=== PATIENT | female | born 1985 ===

== ENCOUNTER 2021-02-10 12:26 | Emergency (ER) | payer OTHER, MEDICAID, SELFPAY ==
[2021-02-10 12:26] VITALS: BP 137/85; PULSE 107; RESP 18; TEMP 36.8; O2SAT 97
--- NOTE | 2021-02-10 12:43 | DI.RAD.S_ITS ---
PROCEDURE: XR CHEST 1V INDICATIONS: chest pain TECHNIQUE: One view of the chest was acquired. COMPARISON: None. FINDINGS: Surgical changes and devices: Median sternotomy wires and prosthetic heart valve are seen. Lungs and pleura: Ill-defined airspace opacities in right upper lung field is seen extending to right hilar region which may represent right upper lobe scarring/atelectasis. Developing infiltrate cannot be excluded. Left lung is clear. No pleural effusions or pneumothorax. Mediastinum: Mediastinal contours appear normal. Heart size is normal. Bones and chest wall: No suspicious bony lesions. Overlying soft tissues appear unremarkable. IMPRESSION: Ill-defined linear opacities in right upper lung field extending to right hilar region concerning for developing small infiltrates versus right upper lobe scarring/atelectasis. No pleural effusion or pneumothorax. Left lung is clear Dictated by: Mikey Sharma M.D. on 02/10/2021 at 12:57 Approved by: Mikey Sharma M.D. on 02/10/2021 at 13:04
--- NOTE | 2021-02-10 12:47 | ED.CHESTPAIN ---
HPI - Chest Pain General Chief Complaint: Chest Pain Stated Complaint: chest pain Time Seen by Provider: 02/10/21 12:39 Source: patient Mode of arrival: EMS Limitations: no limitations History of Present Illness HPI narrative: The patient presents with central, sternal chest pain. She underwent mitral valve replacement in 2019. Since the surgery she has gained over 100 lb despite focused on a very strict diet. She has by lower extremity edema. Both legs are achy. She has no cough, dyspnea, or hemoptysis with the symptoms. The chest pain is over the sternum and does not radiate. She denies recent URI symptoms. She has no fever. The chest pain does not radiate. She is in a local methadone clinic. The pain started less than 2 hours ago. She confided with the triage nurse that she has messed up with her dosing lately, she is due to undergo a drug screen. Related Data Allergies Allergy/AdvReac Type Severity Reaction Status Date / Time amoxicillin [AMOXICILLIN] Allergy Mild Unverified 07/10/17 12:41 cefaclor [From CECLOR] Allergy Mild Unverified 07/10/17 12:41 Penicillins [PENICILLINS] Allergy Mild Unverified 07/10/17 12:41 Review of Systems Constitutional Constitutional: Reports as per HPI, Reports body ache(s), Denies chills, Denies fever(s) and Denies headache(s) Eyes Eyes: Denies blurry vision and Denies change in vision ENT Ears, Nose, Mouth, and Throat: Denies vertigo, Denies dizziness, Denies headache(s) and Denies sore throat Cardiovascular Cardiovascular: Reports as per HPI and Reports chest pain Respiratory Respiratory: Denies chest congestion, Denies cough and Denies hemoptysis Gastrointestinal Gastrointestinal: Denies abdominal pain, Denies nausea and Denies vomiting Genitourinary Genitourinary: Denies dysuria Musculoskeletal Comments: Lower extremity edema, see HPI. Integumentary/Breasts Skin/Breast: Denies lesions and Denies rash Neurologic Neurologic: Denies confusion, Denies vertigo, Denies dizziness and Denies headache(s) Psychiatric Psychiatric: Denies confusion Hematologic/Lymphatic On Anticoagulants: No Patient History Medical History (Updated 02/10/21 @ 16:01 by Parmjit Nam MD) Narcotic abuse Surgical History (Updated 02/10/21 @ 15:55 by Parmjit Nam MD) Mitral valve replaced Social History Smoking Status: Current every day smoker Smoking Status: Current every day smoker tobacco type: cigarettes Substance Use Type: heroin, opiates and prescription drug Exam Initial Vital Signs Initial Vital Signs: Vital Signs Temperature 98.2 F 02/10/21 12:26 Pulse Rate 107 H 02/10/21 12:26 Respiratory Rate 18 02/10/21 12:26 Blood Pressure 137/85 02/10/21 12:26 Pulse Oximetry 97 02/10/21 12:26 Const General: cooperative, healthy appearing and comfortable HENMT Head: normal to inspection, normocephalic and atraumatic Eyes Pupils: PERRL EOM: EOM intact bilaterally Neck Neck: supple and No tender Chest Other: Reproducible tenderness in the upper sternum. Resp Effort & Inspection: cough Auscultation: clear to auscultation bilaterally Cardio Rate: regular rate Rhythm: regular rhythm Heart Sounds: S1 normal, S2 normal and no murmurs GI Inspection: normal to inspection Palpation: soft and No tender Back/Spine/Pelvis Back: No CVA tenderness Skin General: no rashes or lesions noted Neuro General: patient alert, patient awake, patient oriented x3 and no focal motor deficits Extrem Other: Bilateral extremity edema. Mild bilateral calf tenderness. Psych Mental Status: mental status grossly normal Course Course Course Narrative: The patient has sternal tenderness. There is no evidence of acute coronary syndrome. She has bilateral extremity edema with mild tenderness. There is no evidence of DVT. Orders Ordered: ED Orders 02/10/21 12:28 EKG-12 Lead Stat 02/10/21 12:43 XR chest 1V Stat 02/10/21 13:09 Complete Blood Count AUTO DIFF Stat Comprehensive Metabolic Panel Stat D Dimer Stat Lipase Stat NT-proBNP (BNP-Adult 18+) Stat Troponin & CK Cardiac Panel Stat 02/10/21 14:20 US periph venous low extrem bi Stat 02/10/21 15:47 Urine Microscopic Stat Discontinued Medications Ibuprofen (Ibuprofen 400 Mg Tablet) 800 mg PO NOW ONE Stop: 02/10/21 12:47 Last Admin: 02/10/21 12:52 Dose: 800 mg Documented by: VANGIE Vital Signs Vital signs: Vital Signs - 8 hr 02/10/21 12:26 02/10/21 13:01 02/10/21 13:30 Temperature 98.2 F Pulse Rate 107 H 91 H 84 Respiratory Rate 18 15 13 Blood Pressure 137/85 128/63 127/63 Pulse Oximetry 97 96 93 02/10/21 14:00 02/10/21 14:30 02/10/21 15:00 Temperature Pulse Rate 80 88 95 H Respiratory Rate 16 Blood Pressure 118/58 L 133/73 121/90 Pulse Oximetry 94 100 98 MDM - Chest Pain Lab Data Result diagrams: 02/10/21 13:09 02/10/21 13:09 Labs: Lab Results 02/10/21 02/10/21 02/10/21 Range/Units 13:09 13:09 13:09 WBC 7.7 (4.5-11.0) X10^3/uL RBC 4.36 (4.0-5.2) X10^6/uL Hgb 13.0 (12.0-16.0) g/dL Hct 38.3 (36-46) % MCV 87.8 (80-100) fL MCH 29.9 (26-34) PG MCHC 34.0 (30-36) % RDW 14.1 (11.6-14.8) % Plt Count 267 (150-400) X10^3/uL Neut % (Auto) 69.4 (50-75) % Lymph % (Auto) 21.5 L (25-40) % [place] % (Auto) 6.5 (3-14) % Eos % (Auto) 2.2 (2-4) % Baso % (Auto) 0.4 (0-2) % Neut # (Auto) 5300 (8155-5042) /uL Lymph # (Auto) 1700 (9319-0452) /uL [place] # (Auto) 500 (0-900) /uL Eos # (Auto) 200 (0-450) /uL Baso # (Auto) 0 (0-100) /uL D-Dimer < 200 (<230) ng/mL Sodium 138 (137-145) mmol/L Potassium 4.6 (3.4-5.1) mmol/L Chloride 102 (98-107) mmol/L Carbon Dioxide 28 (22-32) mmol/L BUN 23 H (7-17) mg/dL Creatinine 0.68 (0.52-1.04) mg/dL Estimated GFR > 60.0 (>60) mL/min BUN/Creatinine Ratio 33.8 H (6-22) Glucose 114 H (70-100) mg/dL Calcium 9.3 (8.4-10.2) mg/dL Total Bilirubin 0.5 (0.2-1.3) mg/dL AST 33 (14-36) IU/L ALT 22 (<35) IU/L Alkaline Phosphatase 89 (38-126) U/L Total Creatine Kinase 143 H (30-135) U/L CK-MB (CK-2) 3.03 H (<2.37) ng/mL CK-MB (CK-2) Rel Index 2.1 (1.5-5.0) % Troponin I < 0.012 (0.01-0.034) ng/mL NT-Pro-B Natriuret Pep (<125) pg/mL Total Protein 7.6 (6.3-8.2) g/dL Albumin 4.4 (3.5-5.0) g/dL Globulin 3.2 (1.7-4.1) g/dL Albumin/Globulin Ratio 1.4 (1.0-2.8) Lipase 48 (23-300) U/L 02/10/21 Range/Units 13:09 WBC (4.5-11.0) X10^3/uL RBC (4.0-5.2) X10^6/uL Hgb (12.0-16.0) g/dL Hct (36-46) % MCV (80-100) fL MCH (26-34) PG MCHC (30-36) % RDW (11.6-14.8) % Plt Count (150-400) X10^3/uL Neut % (Auto) (50-75) % Lymph % (Auto) (25-40) % [place] % (Auto) (3-14) % Eos % (Auto) (2-4) % Baso % (Auto) (0-2) % Neut # (Auto) (7753-9032) /uL Lymph # (Auto) (2120-9724) /uL [place] # (Auto) (0-900) /uL Eos # (Auto) (0-450) /uL Baso # (Auto) (0-100) /uL D-Dimer (<230) ng/mL Sodium (137-145) mmol/L Potassium (3.4-5.1) mmol/L Chloride (98-107) mmol/L Carbon Dioxide (22-32) mmol/L BUN (7-17) mg/dL Creatinine (0.52-1.04) mg/dL Estimated GFR (>60) mL/min BUN/Creatinine Ratio (6-22) Glucose (70-100) mg/dL Calcium (8.4-10.2) mg/dL Total Bilirubin (0.2-1.3) mg/dL AST (14-36) IU/L ALT (<35) IU/L Alkaline Phosphatase (38-126) U/L Total Creatine Kinase (30-135) U/L CK-MB (CK-2) (<2.37) ng/mL CK-MB (CK-2) Rel Index (1.5-5.0) % Troponin I (0.01-0.034) ng/mL NT-Pro-B Natriuret Pep 321 H (<125) pg/mL Total Protein (6.3-8.2) g/dL Albumin (3.5-5.0) g/dL Globulin (1.7-4.1) g/dL Albumin/Globulin Ratio (1.0-2.8) Lipase (23-300) U/L Imaging Data Chest x-ray: Radiologist's Impression: No acute cardiopulmonary process. Bilateral lower extremity venous ultrasound:: Radiologist's Impression: No evidence of DVT. ECG Data Attestation: I personally reviewed and interpreted this ECG as follows: (Normal sinus rhythm rate 97 beats per minute. LAD. QT 392, QTC 497. No ectopy. No acute ST T wave changes. ) Discharge Plan Departure Patient Disposition: Home Clinical Impression: Acute costochondritis, Dependent edema Instructions: DI for Costochondritis Activity Restrictions/Additional Instructions: You have tenderness to the sternum, there is no evidence of a cardiac issue. The swelling to her legs is not associated with blood clots. I would recommend ibuprofen for the chest wall pain. Follow-up with the primary care doctor regarding the edema. Return here as needed.
[2021-02-10] MEDS: IBUPROFEN 400 MG TABLET 800 MG PO (12:52)
[2021-02-10 13:01] VITALS: BP 128/63; PULSE 91; RESP 15; O2SAT 96
[2021-02-10 13:20] LABS: Add Manual Diff / Slide Review NO; Basophils Absolute Auto 0 /uL (0-100); Basophils Percent Auto 0.4 % (0-2); Eosinophils Absolute Auto 200 /uL (0-450); Eosinophils Percent Auto 2.2 % (2-4); Hematocrit 38.3 % (36-46); Lymphocytes Absolute Auto 1700 /uL (1100-4500); Lymphocytes Percent Auto 21.5 % (25-40); Mean Corpuscular Hemoglobin 29.9 PG (26-34); Mean Corpuscular Volume 87.8 fL (80-100); Monocytes Absolute Auto 500 /uL (0-900); Monocytes Percent Auto 6.5 % (3-14); Neutrophils Absolute Auto 5300 /uL (1500-7000); Neutrophils Percent Auto 69.4 % (50-75); Platelet Count 267 X10^3/uL (150-400); Red Blood Cell Count 4.36 X10^6/uL (4.0-5.2); Red Cell Distribution Width 14.1 % (11.6-14.8); White Blood Cell Count 7.7 X10^3/uL (4.5-11.0)
[2021-02-10 13:30] VITALS: BP 127/63; PULSE 84; RESP 13; O2SAT 93
[2021-02-10 13:30] LABS: D Dimer < 200 ng/mL (<230)
[2021-02-10 13:34] LABS: Alanine Aminotransferase 22 IU/L (<35); Albumin 4.4 g/dL (3.5-5.0); Albumin Globulin Ratio 1.4 (1.0-2.8); Alkaline Phosphatase 89 U/L (38-126); Aspartate Aminotransferase 33 IU/L (14-36); BUN Creatinine Ratio 33.8 (6-22); Bilirubin Total 0.5 mg/dL (0.2-1.3); Blood Urea Nitrogen 23 mg/dL (7-17); Calcium 9.3 mg/dL (8.4-10.2); Carbon Dioxide 28 mmol/L (22-32); Chloride 102 mmol/L (98-107); Creatine Kinase 143 U/L (30-135); Estimated Glomerular Filt Rate > 60.0 mL/min (>60); Globulin 3.2 g/dL (1.7-4.1); Glucose 114 mg/dL (70-100); HEMOLYSIS < 15 (0-50); Lipase 48 U/L (23-300); Potassium 4.6 mmol/L (3.4-5.1); Sodium 138 mmol/L (137-145); Total Protein 7.6 g/dL (6.3-8.2)
[2021-02-10 13:42] LABS: NT-proBNP (BNP-Adult 18+) 321 pg/mL (<125)
[2021-02-10 13:45] LABS: Troponin I < 0.012 ng/mL (0.01-0.034)
[2021-02-10 13:49] LABS: CKMB % Relative Index 2.1 % (1.5-5.0); Creatine Kinase MB 3.03 ng/mL (<2.37)
[2021-02-10 14:00] VITALS: BP 118/58; PULSE 80; RESP 16; O2SAT 94
--- NOTE | 2021-02-10 14:20 | DI.US.S_ITS ---
PROCEDURE: US PERIPH VENOUS LOW EXTREM BI INDICATIONS: RULE OUT DEEP VEIN THROMBOSIS TECHNIQUE: Real-time imaging, as well as color and pulse Doppler interrogation, were performed of the deep veins of both legs from the inguinal ligament to the popliteal fossa. COMPARISON: None. FINDINGS: Right: The common femoral, femoral and popliteal veins are normally compressible, and free of intraluminal thrombus. Color and pulse Doppler demonstrate normal phasic intravascular flow. There is normal augmentation response to distal compression maneuver. Left: The common femoral, femoral and popliteal veins are normally compressible, and free of intraluminal thrombus. Color and pulse Doppler demonstrate normal phasic intravascular flow. There is normal augmentation response to distal compression maneuver. Trace bilateral ankle edema. IMPRESSION: No lower extremity DVT in either leg. Dictated by: Rivas Weaver M.D. on 02/10/2021 at 15:28 Approved by: Rivas Weaver M.D. on 02/10/2021 at 15:29
[2021-02-10 14:30] VITALS: BP 133/73; PULSE 88; O2SAT 100
[2021-02-10 15:00] VITALS: BP 121/90; PULSE 95; O2SAT 98
[2021-02-10 17:40] LABS: Bacteria Urine Moderate (10-30); Culture Indicated Urine Specimen Cultured; RBC Urine None Seen (0-5/HPF); Squamous Epithelial Cell Urine 0-1 /HPF (0-5/HPF); WBC Urine 0-1/HPF (0-5/HPF)
== END 2021-02-10 16:10 | disposition home or self-care (01) ==
PROVIDERS: Emergency Provider Emergency Medicine
DX: M94.0 Chondrocostal junction syndrome [Tietze] (principal); R60.0 Localized edema
CPT/HCPCS: 36415; 71045; 80053; 81015; 82550; 82553; 83690; 83880; 84484; 85025; 85379; 87086; 93005; 93010; 93970; 99283; 99284